=== PATIENT | female | born 1950 | race Caucasian/White ===

== ENCOUNTER 2018-11-26 05:34 | Observation (INO) | payer OTHER ==
[~2018-11-26] VITALS: Ht 160 cm; Wt 68.0 kg
[~2018-11-26 05:34] MED LIST: AMI200 PO; APIX5TAB PO; ASPI-1154 PO; CANA300T PO; GLYB5TAB7 PO; LOSA100T3 PO; METF1000 PO; METO25TA6 PO; RESEYE OP
[2018-11-26 05:40] VITALS: BP_SYST 165
[2018-11-26] MEDS ORDERED: NACL 0.9% 1,000 ML IV ONE (05:53)
[2018-11-26] MEDS ORDERED: GLIP5TAB26 PO (05:59)
[2018-11-26] MEDS ORDERED: CANA100T PO (05:59)
[2018-11-26] MEDS ORDERED: LIP10 PO (05:59)
[2018-11-26 06:10] LABS: BILIRUBIN,URINE NEGATIVE (NEGATIVE); BLOOD, URINE 3+ (NEGATIVE); CLARITY/URINE CLOUDY (CLEAR); COLOR,URINE RED (YELLOW); GLUCOSE,URINE 3+ (NEGATIVE); KETONES,URINE NEGATIVE (NEGATIVE); LEUKOCYTE ESTERASE ,URINE 2+ (NEGATIVE); NITRITE, URINE POSITIVE (NEGATIVE); PROTEIN URINE 3+ (NEGATIVE); UROBILINOGEN,URINE 0.2 (0.2-1.0)
[2018-11-26 06:32] LABS: BACTERIA,URINE MODERATE /HPF (None Seen); RBC,URINE >100 /HPF (0-3)
[2018-11-26 06:36] LABS: BASOPHILS % (AUTO) 0.3 % (0.0-2.0); EOSINOPHILS # (AUTO) 0.1 K/uL (0.0-0.4); EOSINOPHILS % (AUTO) 0.8 % (0.0-4.0); HEMATOCRIT 41.1 % (36-48); HEMOGLOBIN 13.2 g/dL (12.0-16.0); LYMPHOCYTES % (AUTO) 6.7 % (20.5-51.5); MEAN CORPUSCULAR HEMOGLOBIN 28 pg (27-31); MEAN CORPUSCULAR HGB CONC 32 % (32-36); MEAN CORPUSCULAR VOLUME 87 fL (79.0-98.0); MONOCYTES # (AUTO) 0.9 K/uL (0.0-1.0); NEUTROPHILS # (AUTO) 12.5 K/uL (1.8-7.7); NEUTROPHILS % (AUTO) 86.2 % (40.0-70.0); PLATELET COUNT (AUTO) 274 K/uL (130-430); RED BLOOD CELL COUNT(AUTO) 4.72 MIL/uL (4.2-6.2); RED CELL DISTRIBUTION WIDTH 14.3 % (9.0-15.0); WHITE BLOOD COUNT (AUTO) 14.5 K/uL (4.8-10.8)
[2018-11-26 06:54] LABS: CALCIUM 9.2 mg/dL (8.4-11.0); CREATININE 0.79 mg/dL (0.55-1.30); POTASSIUM 3.9 mmol/L (3.5-5.1)
[2018-11-26 06:58] LABS: INR 1.2 (0.8-1.2); PROTHROMBIN TIME 11.8 SECS (9.5-12.5)
[2018-11-26 07:00] LABS: ALBUMIN 3.5 g/dL (3.4-4.8); TOTAL BILIRUBIN 0.4 mg/dL (0.0-1.0)
[2018-11-26] MEDS ORDERED: LEVOFLOXACIN 500 MG/D5W 100 ML IV ONE (07:15)
[2018-11-26 07:57] VITALS: BP_SYST 146
[2018-11-26 08:00] VITALS: BP_SYST 146
[2018-11-26 12:27] VITALS: BP_SYST 134
[2018-11-26 12:32] VITALS: BP_SYST 134
== END 2018-11-26 13:00 | disposition home or self-care (01) ==
LOC: SED 05:34 → INTOOBSV 07:20 → SMU 07:20
PROVIDERS: ADMIT Internal Medicine Hospice and Palliative Medicine; ATTEND Internal Medicine Hospice and Palliative Medicine
DX: R31.0 Gross hematuria (principal); E11.9 Type 2 diabetes mellitus without complications; I10 Essential (primary) hypertension; I48.91 Unspecified atrial fibrillation; Z79.01 Long term (current) use of anticoagulants; Z90.710 Acquired absence of both cervix and uterus
CPT/HCPCS: 36415; 74176; 80053; 81000; 85025; 85610; 85730; 87040; 87086; 87186; 93005; 96365; 99285; G0378; J1956; 96375